=== PATIENT | female | born 1990 | race Hispanic/Latino ===

== ENCOUNTER 2017-08-07 17:06 | Emergency (ER) | payer SELFPAY ==
[2017-08-07] MEDS ORDERED: SULFA/TRIMETH 800/160 (DS) TAB 1 EA TAB ONE (17:42)
== END 2017-08-07 17:50 | disposition home or self-care (01) ==
LOC: ER 17:06
DX: S61.012A Laceration without foreign body of left thumb without damage to nail, initial encounter (principal); W26.8XXA Contact with other sharp object(s), not elsewhere classified, initial encounter; Y92.009 Unspecified place in unspecified non-institutional (private) residence as the place of occurrence of the external cause

== ENCOUNTER 2019-12-25 | Emergency (ER) | payer BC, OTHER ==
--- NOTE | 2019-12-25 19:54 | ED.PDOC ---
History of Present Illness - General Chief Complaint: Lower Extremity Injury Stated Complaint: knot on left calf Time Seen by Provider: 12/25/19 19:39 - History of Present Illness Initial Comments: 21-year-old female presents with 1 day history of a small nodule or not in the medial aspect of left calf, which is tender. No warmth or fevers, denies any recent trauma, was worried about a blood clot. She has not noticed any swelling in the calf no swelling in the feet she is not feeling short of breath. No recent long travel. Allergies/Adverse Reactions: Allergies Cefaclor [From Ceclor] Allergy (Verified 12/25/19 19:49) Tramadol Allergy (Unverified 03/01/13 19:05) Home Medications: Ambulatory Orders RX: Drospirenone-Ethinyl Estradiol [Loryna 3-0.02 mg] 1 tablet PO DAILY 12/25/19 Review of Systems - Review of Systems Review of Systems: 12/25/19 22:14 General: Denies generalized weakness, fever, arthralgia/myalgia HEENT: Denies sore throat, rhinorrhea Cardiovascular: Denies chest pain, palpitations Respiratory: Denies SOB, cough Gastrointestinal: Denies abdominal pain, vomiting, diarrhea : Denies dysuria, frequency Musculoskeletal: localized tenderness calf, as in HPI, o/w negtive Integument: Denies rash, itching Neuro: Denies focal weakness or numbness Past Medical History (General) - Patient Medical History Hx Seizures: No Hx Stroke: No Hx Dementia: No Hx Asthma: No Hx of COPD: No Hx Cardiac Disorders: No Hx Congestive Heart Failure: No Hx Pacemaker: No Hx Hypertension: No Hx Thyroid Disease: No Hx Diabetes: No Hx Gastroesophageal Reflux: No Hx Renal Disease: No Hx Cancer: No Hx of HIV: No Hx Hepatitis C: No Hx MRSA: No Surgical History: no surgical history - Vaccination History Hx Tetanus, Diphtheria Vaccination: Yes Hx Influenza Vaccination: Yes - Social History Hx Tobacco Use: No Hx Alcohol Use: No - Female History Patient is a Female of Child Bearing Age (10 -59 yrs old): Yes Patient : No Family Medical History - Family History Mother Family History: Unknown Physical Exam - Physical Exam Comments: General Appearance: Patient is awake and alert. Skin: Warm and dry. No diaphoresis. No rash or other lesions. Head: Normocephalic/atraumatic. Eyes: PERRL, lids, conjunctiva and sclera unremarkable. EOMI intact. ENT: No nasal discharge. Oropharynx. Without erythema, exudate, lesions. Moist mucous membranes. Neck: Supple. No LAD. No tenderness. No JVD noted. Respiratory: Normal rate and effort. Breath sounds clear bilaterally. Cardiovascular: Regular rate. Heart sounds normal. No murmur. GI: Abdomen soft, non-distended and non-tender. No rebound/guarding. Bowel sounds normal. Back: No tenderness Musculoskeletal: Extremities- Normal range of motion. No effusion, cyanosis, edema. calves are symmetric, non-tender. has localized superficial region of calf that is mildly tender, no warmth or redness, no mass palpated. Neurological: Alert. No facial palsy. Speech clear. Gag intact. No motor deficit, str symmetric. No sensory deficit. Progress - Progress Progress: 12/25/19 22:16 Safety Stop S, exam remain reassuring.. I have discussed findings, diff dx, plan of care, need for follow-up, and reasons to return to the ED. Safety Stop (Diagnostic Time-Out): Tachycardia: No Diagnostic Studies: Reviewed Diagnostic Certainty: low Patient/family feels safe with discharge: Yes Departure - Departure Clinical Impression: Calf tenderness Time of Disposition: 19:53 Disposition: Discharge to Home or Self Care Condition: Good Departure Forms: ED Discharge - Pt. Copy, Patient Portal Self Enrollment Instructions: DI for Leg Pain Activity: increase activity as tolerated Referrals: Marjyo Slaughter FNP [Primary Care Provider] - 1-2 Days (as needed) Home Medications: Ambulatory Orders RX: Drospirenone-Ethinyl Estradiol [Loryna 3-0.02 mg] 1 tablet PO DAILY 12/25/19 Additional Instructions: Please trial ibuprofen 600mg three times a day with food for the next 5 days, apply warm compress to the area 2-3 times daily until improved. Comments: Denny Bernstein MD Emergency Medicine #[id number]
== END 2019-12-25 19:57 | disposition home or self-care (01) ==
DX: M79.662 Pain in left lower leg (principal)